=== PATIENT | male | born 1935 | race Caucasian/White ===

== ENCOUNTER → 2016-07-06 | Outpatient (CLI) | payer MEDICARE, BC ==
[~2016-07-06] MED LIST: ALLOPURINOL100 MG PO; ASPIRIN EC81 MG PO; CALCIUM 600 +1 EAC4 PO; CLARITIN10 MG PO; CO Q-1050 MG PO; COLACE100 MG PO; CPAP INH; FLUNISOLIDE25 ML NOSE; GLIPIZIDE10 MG PO; HYDRODIURIL25 MG PO; LEVEMIR FL100 UNIT/1 SUB-Q; LIPITOR40 MG PO; METAMUCIL CAPSU1 CAP PO; METAMUCIL660 GM PO; MIRALAX17 GM PO; NITROSTAT0.4 MG SL; NORCO 5-325 MG1 TAB PO; NORVASC10 MG PO; NOVOLOG100 UNIT/M SUB-Q; ONGLYZA5 MG PO; PAXIL20 MG PO; PAXIL30 MG PO; PLAVIX75 MG PO; PRILOSEC20 MG PO; PRINIVIL (ZESTRI5 MG PO; PROVENTIL OR V6.7 GM INH; TERAZOSIN HCL10 MG PO; ZEBETA10 MG PO
--- NOTE | ~2016-07-06 | PUL ---
PATIENT'S NAME: ISABEL HERNANDEZ [facility] AGE: 80 Y [address] ROOM: [place] [address] LOCATION: [facility] ADMIT DATE: 07/06/2016 Pulmonary DISCHARGE DATE: FAMILY PHYSICIAN: PHYSICIAN, NO ATTENDING PHYSICIAN: Donavon Joseph NAME OF PROCEDURE: Sleep Study DATE OF PROCEDURE: 07/06/16 TECH: KENNY Barker TEST #: [facility]# [id number] MEDICAL HISTORY: Patient is a 80-year-old overweight gentleman with persistent daytime sleepiness and a history of obstructive sleep apnea. This study was done to titrate CPAP. SLEEP STAGE SUMMARY: The patient was studied for 512 minutes of which he slept 465 minutes. He fell asleep in 9 minutes and slept for 91% of the night. Sleep architecture revealed a decline in slow wave and REM sleep. RESPIRATORY SUMMARY: CPAP was initiated at 13 cm and titrated to 17 cm with excellent control the respiratory events. EKG SUMMARY: Average heart rate 65 beats per minute. LIMB MOVEMENT SUMMARY: No clinically relevant periodic limb movements were noted. SUMMARY: Obstructive sleep apnea responsive to CPAP at 17 cm. PLAN: Suggest CPAP at 17 cm. Patient will receive results from the ordering provider. MD MARYCHUY LANG/ /[id number] dtt: 07/15/16 1303 , Terry Howell dtd: 07/08/16 1114
== END | disposition disaster alternative care site (69) ==
LOC: GSLP 07-05 20:03
DX: G47.33 Obstructive sleep apnea (adult) (pediatric) (principal); G47.10 Hypersomnia, unspecified; R06.83 Snoring